=== PATIENT | male | born 1960 | race Caucasian/White ===

== ENCOUNTER 2019-01-27 09:21 | Outpatient (CLI) | payer OTHER ==
[~2019-01-27 09:21] MED LIST: LODINE XL400 MG PO; ORPH100T PO
== END 2019-01-27 09:24 | disposition home or self-care (01) ==
LOC: RAD 09:21
DX: M25.511 Pain in right shoulder (principal); M25.531 Pain in right wrist

== ENCOUNTER 2021-11-22 16:04 | Outpatient (CLI) | payer OTHER | END 2021-11-22 16:14 | disposition home or self-care (01) | LOC: RAD 16:04 | PROVIDERS: ATTEND Physical Medicine & Rehabilitation Sports Medicine | DX: M75.41 Impingement syndrome of right shoulder (principal); M94.0 Chondrocostal junction syndrome [Tietze] ==